=== PATIENT | female | born 1975 | race Caucasian/White ===

== ENCOUNTER 2016-08-06 11:39 | Emergency (ER) | payer OTHER ==
[2016-08-06 12:01] VITALS: BP 123/63; PULSE 99; RESP 18; TEMP 98.5; O2SAT 94
--- NOTE | 2016-08-06 12:51 | UCPHY ---
H & P Time Seen by Provider: 08/06/16 11:51 Patient Type: New HPI/ROS: CHIEF COMPLAINT: Left ankle and foot pain History by patient HISTORY OF PRESENT ILLNESS: 41 old woman presents of left ankle foot pain after she rolled her foot off of low he will she that she was wearing. It has been painful to weight bear since. This happened about an hour prior to admission she immediately took 600 mg of ibuprofen and applied frozen peas. REVIEW OF SYSTEMS: As in HPI, and all other systems reviewed and are negative Smoking Status: Current every day smoker Physical Exam: General Appearance: Alert and no distress. Eyes: Pupils equal and round no injection. Musculoskeletal: Neck is supple and nontender. Extremities: Left foot with tenderness over the base of 5th metatarsal, mild swelling, positive left lateral malleolar tenderness, no medial malleolar tenderness, decreased range of motion of left ankle due to pain, DP pulse 2 + equal to right, distal cap refill less than 2 seconds, moves all toes with full range of motion and distal sensation intact. Right foot is unaffected, left knee with full range of motion and no tenderness Skin: No rashes or lesions. Constitutional: Initial Vital Signs Temperature (C) 36.9 C 08/06/16 11:58 Heart Rate 99 08/06/16 11:58 Respiratory Rate 18 08/06/16 11:58 Blood Pressure 123/63 H 08/06/16 11:58 O2 Sat (%) 94 08/06/16 11:58 O2 Delivery Mode Room Air Allergies/Adverse Reactions: surgical well cleaner Allergy (Uncoded 08/06/16 11:56) Home Medications: Medication Instructions Recorded Control Pills 08/06/16 Hydrocodone/Acetaminophen [Austin 1 - 2 tab PO Q4H PRN #10 tab 08/06/16 5/325 (*)] Lexapro 10 MG 08/06/16 Wellbutrin 100mg (*) 08/06/16 Xanax 08/06/16 Medical Decision Making - Diagnostics Imaging: Imaging Impressions Ankle X-Ray 08/06/16 11:51 Impression: Peroneus brevis tendon avulsion of the fifth metatarsal base. 2. Left Ankle, Three Views History: Pain, post trauma. Rolled foot and ankle earlier today. Findings: No ankle fracture, ankle joint effusion, or ankle dislocation is identified. Impression: No acute ankle injury identified.. Foot X-Ray 08/06/16 11:52 Impression: Peroneus brevis tendon avulsion of the fifth metatarsal base. 2. Left Ankle, Three Views History: Pain, post trauma. Rolled foot and ankle earlier today. Findings: No ankle fracture, ankle joint effusion, or ankle dislocation is identified. Impression: No acute ankle injury identified.. ED Course/Re-evaluation: Patient presents with pain and tenderness over left foot and ankle after rolling her foot off the low heeled shoe. X-ray shows left 5th metatarsal styloid fracture. Patient was placed in the postop shoe and instructed to be weight-bearing as tolerated and follow up with Orthopedics. She is discharged home with prescription for Austin and instructions to take ibuprofen as needed for pain. Departure - Departure Disposition: Home, Routine, Self-Care Clinical Impression: Metatarsal fracture Qualifiers: Encounter type: initial encounter Metatarsal bone: fifth Fracture type: closed Fracture alignment: displaced Laterality: left Qualified Code(s): S92.352A - Displaced fracture of fifth metatarsal bone, left foot, initial encounter for closed fracture Condition: Good Instructions: Foot Fracture in Adults (ED) Additional Instructions: You were seen by Dr. Yen Ledbetter today. Return for any worsening or new concerns. Take ibuprofen as needed for pain and Austin for breakthrough pain. Continue to ice your foot and keep it elevated for pain control. You may weight bear as tolerated. Please follow up with orthopedist doctor next week. Referrals: CALVIN RIOS [Primary Care Provider] - As per Instructions Aakash Hdz MD [Medical Doctor] - As per Instructions Prescriptions: Hydrocodone/Acetaminophen [[place] 5/325 (*)] 1 - 2 tab PO Q4H PRN #10 tab PRN Reason: Pain, Moderate - PQRS PQRS Measurement: NA
== END 2016-08-06 13:03 | disposition home or self-care (01) ==
LOC: CED 11:39
DX: S92.352A Displaced fracture of fifth metatarsal bone, left foot, initial encounter for closed fracture (principal); X50.1XXA Overexertion from prolonged static or awkward postures, initial encounter; F17.200 Nicotine dependence, unspecified, uncomplicated
CPT/HCPCS: 73610-PO; 73630-PO; 99203-PO; G0463-PO; L3260